=== PATIENT | female | born 1960 | race Caucasian/White ===

== ENCOUNTER 2019-08-26 09:52 | Day surgery (SDC) | payer BC ==
[~2019-08-26 09:52] MED LIST: HEMOCYTE1 TAB OR; LIPITOR10 M1 PO; MULTIVITAMI1 PO; ZPAK PO
[2019-08-26] MEDS ORDERED: PERCOCET 5/325M1 TAB PO (12:46)
[2019-08-26 13:10] VITALS: BP 108/59
== END 2019-08-26 13:33 | disposition home or self-care (01) | DRG 572 ==
LOC: ORM 09:52
PROVIDERS: ATTEND Surgery
PROC: 0JB90ZZ Excision of Buttock Subcutaneous Tissue and Fascia, Open Approach (ICD-10-PCS; principal; 2019-08-26)
PROC: 0JBP0ZZ Excision of Left Lower Leg Subcutaneous Tissue and Fascia, Open Approach (ICD-10-PCS; 2019-08-26)
DX: L05.01 Pilonidal cyst with abscess (principal); L72.0 Epidermal cyst
CPT/HCPCS: C9290

== ENCOUNTER 2020-01-04 | Day surgery (SDC) | payer OTHER ==
[~2020-01-04] MED LIST changes: +PERCOCET 5/325M1 TAB PO
[2020-01-04] MEDS ORDERED: PERCOCET 5/325M1 TAB PO (11:04)
== END 2020-01-04 11:20 | disposition home or self-care (01) | DRG 921 ==
PROC: 0HQ8XZZ Repair Buttock Skin, External Approach (ICD-10-PCS; principal; 2020-01-04)
DX: T81.89XA Other complications of procedures, not elsewhere classified, initial encounter (principal); Y83.8 Other surgical procedures as the cause of abnormal reaction of the patient, or of later complication, without mention of misadventure at the time of the procedure
CPT/HCPCS: C9290